=== PATIENT | female | born 1970 | race Caucasian/White ===

== ENCOUNTER 2021-05-07 17:56 | Emergency (ER) | payer BC, SELFPAY ==
[2021-05-07 18:12] VITALS: BP 140/98; PULSE 67; RESP 20; TEMP 35.7; O2SAT 100
--- NOTE | 2021-05-07 18:48 | PC.NURSE ---
1848 pt at intake desk stating she is going to leave and maybe come back tomorrow. Pt ambulated out of ED with steady gait,no distress noted.
== END 2021-05-07 18:54 | disposition left against medical advice (07) ==
LOC: ANHED 18:53
PROVIDERS: PCP Internal Medicine
DX: Z53.21 Procedure and treatment not carried out due to patient leaving prior to being seen by health care provider (principal)
CPT/HCPCS: 99199

== ENCOUNTER 2022-10-02 17:24 | Emergency (ER) | payer BC, SELFPAY ==
[2022-10-02 18:03] VITALS: BP 117/92; PULSE 78; RESP 20; TEMP 36.4; O2SAT 100
--- NOTE | 2022-10-02 18:06 | ED.URI ---
HPI - URI/Sore Throat General Chief Complaint: Upper Respiratory Infection Stated Complaint: Sinus Time Seen by Provider: 10/02/22 18:06 Source: patient, RN notes reviewed and old records reviewed Mode of arrival: ambulatory Limitations: no limitations History of Present Illness HPI Narrative: 52-year-old female presents to the [facility] with complaints of sinus congestion for over 2 weeks. States that over the last 4 days has gotten worse. Denies fevers. Reports frontal pressure. Reports that at she tried taking a COVID test which she reports is neck Related Data Home Medications Medication Instructions Recorded Confirmed cyanocobalamin (vitamin B-12) 1,000 mcg IM DIRECTED 10/02/22 10/02/22 1,000 mcg/mL injection solution estradiol 1 mg tablet 1 mg PO DAILY 10/02/22 10/02/22 fluticasone propionate 50 2 spray intranasal DIRECTED 10/02/22 10/02/22 mcg/actuation nasal spray,suspension gabapentin 100 mg capsule 100 mg PO DAILY 10/02/22 10/02/22 hydroxychloroquine 200 mg tablet 200 mg PO DIRECTED 10/02/22 10/02/22 lansoprazole 30 mg capsule,delayed 30 mg PO DAILY 10/02/22 10/02/22 release mycophenolate mofetil 500 mg tablet 500 mg PO DIRECTED 10/02/22 10/02/22 rosuvastatin 20 mg tablet 20 mg PO DAILY 10/02/22 10/02/22 venlafaxine 150 mg mg PO 10/02/22 capsule,extended release 24 hr zolpidem 10 mg tablet mg 10/02/22 Allergies Allergy/AdvReac Type Severity Reaction Status Date / Time sulfamethoxazole Allergy Unknown rash Verified 10/02/22 17:41 trimethoprim Allergy Unknown rash Verified 10/02/22 17:41 Review of Systems Review of Systems: All systems reviewed & are unremarkable except as noted in HPI and below Constitutional: Constitutional: Reports no additional constitutional complaints Eyes: Eyes: Reports no additional eye complaints ENT: Reports as per HPI and Reports sinus pressure Cardiovascular: Cardiovascular: Reports no additional cardiovascular complaints, Denies chest pain and Denies dyspnea Respiratory: Respiratory: Reports no additional respiratory complaints, Denies chest congestion, Denies cough and Denies dyspnea Gastrointestinal: Gastrointestinal: Reports no additional gastrointestinal complaints, Denies abdominal pain, Denies nausea and Denies vomiting Musculoskeletal: Musculoskeletal: Reports no additional musculoskeletal complaints Integumentary/Breasts: Skin/Breast: Reports system reviewed and no additional complaints, except as docu Neurologic: Reports system reviewed and no additional complaints, except as documented Psychiatric: Psychiatric: Reports no additional psychiatric complaints Allergic/Immunologic: Allergic/Immunologic: Reports no additional allergic/immunologic complaints PMFSH Comments At the time of my signature, I reviewed and agree with the nursing past medical, surgical, social, and family history. There is no relevant family history pertinent to the patient complaint. Exam Const: General: cooperative, healthy appearing, comfortable, no acute distress, well developed, alert and well nourished Nutritional Appearance: well nourished Orientation/consciousness: patient oriented x3 Limitations: no limitations HENMT: Head: normal to inspection Ears: hearing grossly normal bilaterally and external ears normal Face/Nose/Sinus: Normal external nose present, Normal nares present, Abnormal mucous membranes and turbinates present boggy bilateral; not erythematous and normal facial exam Face and sinus: normal facial exam, face symmetric, no erythema and sinus tenderness frontal and maxillary Mouth: Yes Normal oral and palatal mucosa present, Yes lip normal and Yes moist mucous membranes Throat: posterior oropharynx normal, uvula midline and postnasal drainage Eyes: General: appearance normal, both eyes and all related structures Alignment and Position: alignment normal Periorbital: periorbital findings normal Conjunctivae: conjunctivae normal Pupils: Eq
== END 2022-10-02 18:23 | disposition home or self-care (01) ==
PROVIDERS: Emergency Provider Nurse Practitioner; PCP Internal Medicine
DX: J32.9 Chronic sinusitis, unspecified (principal)
CPT/HCPCS: 99213; G0463